=== PATIENT | male | born 1960 | race Caucasian/White ===

== ENCOUNTER 2021-03-07 06:53 | Emergency (ER) | payer BC, MEDICARE, MEDICAID, SELFPAY ==
[2021-03-07 07:05] VITALS: BP 168/99; PULSE 76; RESP 16; TEMP 36.6; O2SAT 99; BMI 30.5
--- NOTE | 2021-03-07 07:51 | ED.EYEPROB ---
HPI - Eye Problem General Chief complaint: Eye Problems Stated complaint: Eye issue Time Seen by Provider: 03/07/21 07:51 History of Present Illness HPI Narrative: Patient is a 60-year-old male complaining of swelling to the right eye. Patient from home. Believe he has gotten some dust in the eye. Although there is no specific object that he detected. Complaining of watery eyes. Itchy. No fever no chills no systemic complaints. Patient baseline on the medication. Patient from home. No cough and no congestion or upper respiratory symptoms. Related Data Previous Rx's Medication Instructions Recorded olopatadine 0.1 % eye drops 1 drp OPHTHALMIC (EYE) BID #5 ml 03/07/21 Allergies Allergy/AdvReac Type Severity Reaction Status Date / Time animal dander [ANIMAL DANDER] Allergy Unknown NASAL Unverified 02/14/20 15:18 STUFFINESS Review of Systems Review of Systems: No fever no chills no chest pain or shortness breath no nausea no vomiting All systems reviewed otherwise negative Yes all other systems are reviewed and are negative [facility] Past Medical History Attestation statement: The following information was validated with the patient. Medical History No known health problems Social History Social History Patient Tobacco Use Status: Current everyday Tobacco user Use of substances other than those prescribed or required for medical reasons: No Advance Directives: No Physical Exam Vital Signs: Vital Signs: Last Vital Signs Temp 97.9 F 03/07/21 07:05 Pulse 76 03/07/21 07:05 Resp 16 03/07/21 07:05 BP 168/99 H 03/07/21 07:05 Pulse Ox 99 03/07/21 07:05 Body Mass Index 30.5 Appearance: Alert. Oriented X3. No acute distress. Eyes: Pupils equal, round and reactive to light. Examination of the right eye showed the content have a slightly injected. Pupil equal reactive. No overt increase in intraocular pressure noted. The cornea was stained with fluorescein. There is no corneal abrasion noted. The eyelids were everted. No foreign body was found. Visual acuity was 20/50 OS, OD, OU. ENT: Pharynx normal. Neck: Normal inspection. Neck supple. No lymph nodes noted. No crepitus CVS: Normal heart rate and rhythm. Pulses normal. Normal S1 and S2 Respiratory: No respiratory distress. Breath sounds normal. No Wheezing. No rales Abdomen: Soft and nontender. No rigidity. No distention. good BS x4 Skin: Skin warm and dry. Normal skin color. Normal skin turgor. Extremities: No lower extremity edema. Neurovascular intact to all extremities. No Lacerations. No Rash Neuro: Oriented X 3. No motor deficit. No sensory deficit. Moving all extermities. No slurred speech MDM - Eye Problem MDM Narrative Medical decision making narrative: Question allergic conjunctivitis. Will start patient on Patanol. Have patient follow-up with Ophthalmology on an outpatient basis. In stable condition. Visual acuity grossly intact. No foreign body noted. No corneal abrasion noted. Pupil equal reactive Discharge Plan Discharge Clinical Impression: Acute allergic conjunctivitis Patient Disposition: Home, Self-Care Instructions: How to Use Eye Drops (ED), Conjunctivitis (ED) Prescriptions: New olopatadine 0.1 % drops 1 drp ophthalmic (eye) BID Qty: 5 RF: 0 Referrals: Chris Gates [Physician] - 2 days
[2021-03-07] MEDS: Fluorescein Sodium STRIP 2 STRIP EYE-BOTH (08:07)
[2021-03-07] MEDS: Tetracaine HCl/PF 0.5% Oph Sol 4 ML DROPS 3 DROP EYE-BOTH (08:08)
== END 2021-03-07 08:33 | disposition home or self-care (01) ==
PROVIDERS: Emergency Provider Emergency Medicine Emergency Medical Services
DX: H10.13 Acute atopic conjunctivitis, bilateral (principal); Z79.899 Other long term (current) drug therapy
CPT/HCPCS: 99283; 99284